=== PATIENT | male | born 1985 | race Caucasian/White ===

== ENCOUNTER → 2020-10-25 | Outpatient (CLI) | payer BC | LOC: RAD 11:43 | DX: M79.605 Pain in left leg (principal) ==

== ENCOUNTER 2024-07-03 16:43 | Emergency (ER) | payer OTHER ==
[~2024-07-03] VITALS: Ht 188 cm; Wt 95.4 kg
[~2024-07-03 16:43] MED LIST: ZOFRAN ODT4 MG PO
[2024-07-03 17:47] VITALS: BP 152/96
== END 2024-07-03 17:48 | disposition home or self-care (01) ==
LOC: ED 16:43
DX: M79.671 Pain in right foot (principal); W18.30XA Fall on same level, unspecified, initial encounter; Y92.091 Bathroom in other non-institutional residence as the place of occurrence of the external cause